=== PATIENT | male | born 1990 | race Two or more races ===

== ENCOUNTER 2017-06-15 22:42 | Emergency (ER) | payer OTHER ==
[~2017-06-15] VITALS: Ht 175.3 cm; Wt 59.6 kg
[2017-06-15] MEDS ORDERED: ALBUTEROL (23:25)
[2017-06-15] MEDS ORDERED: FAMOTIDINE 20 MG/2 ML IVP ONE (23:30)
[2017-06-15] MEDS ORDERED: SODIUM CHLORIDE 0.9% 1,000ML IVBOLUS ONE (23:30)
[2017-06-15] MEDS ORDERED: MAALOX/HYOSCYAMINE/LIDOCAINE 45 ML BOTTLE PO ONE (23:30)
[2017-06-15] MEDS ORDERED: SODIUM CHLORIDE FLUSH 10ML SYR IVF ONE (23:30)
[2017-06-15] MEDS ORDERED: ONDANSETRON 2MG/ML, 2ML IVPush ONE (23:30)
[2017-06-15 23:53] LABS: ASPARTATE AMINO TRANSFERASE 291 U/L (15-37); BLOOD UREA NITROGEN 6 mg/dL (7-18)
[2017-06-15] MEDS ORDERED: MAALOX/HYOSCYAMINE/LIDOCAINE 45 ML BOTTLE ONE (23:53)
[2017-06-15] MEDS ORDERED: FAMOTIDINE 20 MG/2 ML ONE (23:54)
[2017-06-15] MEDS ORDERED: ONDANSETRON 2MG/ML, 2ML ONE (23:54)
[2017-06-16 01:04] VITALS: BP 111/76
== END 2017-06-16 02:31 | disposition home or self-care (01) ==
LOC: ED 23:35
DX: K29.20 Alcoholic gastritis without bleeding (principal); D69.6 Thrombocytopenia, unspecified; K70.10 Alcoholic hepatitis without ascites
CPT/HCPCS: 36415; 74020; 76700; 80053; 83690; 85025; 96361; 96374; 96375; 99285; J2405; J7030; S0028

== ENCOUNTER 2017-08-04 14:38 | Emergency (ER) | payer OTHER ==
[~2017-08-04] VITALS: Ht 175.3 cm; Wt 61.2 kg
[~2017-08-04 14:38] MED LIST: ALBUTEROL
[2017-08-04 14:41] VITALS: BP 131/82
== END 2017-08-04 15:46 ==
LOC: ED 15:30
DX: S83.92XA Sprain of unspecified site of left knee, initial encounter (principal); X58.XXXA Exposure to other specified factors, initial encounter; Y93.89 Activity, other specified; Y92.89 Other specified places as the place of occurrence of the external cause; Y99.8 Other external cause status
CPT/HCPCS: 99284

== ENCOUNTER 2018-01-25 22:12 | Emergency (ER) | payer OTHER ==
[~2018-01-25] VITALS: Ht 175.3 cm; Wt 65.0 kg
[2018-01-25] MEDS ORDERED: ONDANSETRON 2MG/ML, 2ML IVPush ONE (23:00)
[2018-01-25] MEDS ORDERED: SODIUM CHLORIDE FLUSH 10ML SYR IVF ONE (23:00)
[2018-01-25] MEDS ORDERED: SODIUM CHLORIDE 0.9% 1,000ML IVBOLUS ONE (23:00)
[2018-01-25 23:28] LABS: ALANINE AMINOTRANSFERASE 195 U/L (12-78); ANION GAP 7 mmol/L (5-15); CALCIUM 9.9 mg/dL (8.5-10.1); CHLORIDE 106 mmol/L (98-107); CREATININE 0.84 mg/dL (0.7-1.3)
[2018-01-25 23:29] LABS: MEAN CORPUSCULAR HEMOGLOBIN 33.6 pg (27.5-34.5); MEAN CORPUSCULAR HGB CONC 34.2 g/dL (33.2-36.2); MEAN CORPUSCULAR VOLUME 98.4 fL (81-97); RED BLOOD COUNT 4.87 x10^6/uL (4.38-5.82); RED CELL DISTRIBUTION WIDTH 12.9 % (9.4-14.8)
[2018-01-25 23:30] LABS: ALKALINE PHOSPHATASE 86 U/L (45-117); BILIRUBIN,TOTAL 0.4 mg/dL (0.2-1.0); TOTAL PROTEIN 8.4 g/dL (6.4-8.2)
[2018-01-25 23:36] LABS: MEAN PLATELET VOLUME 7.9 fL (7.4-10.4); PLATELET COUNT 97 x10^3/uL (130-400)
[2018-01-25 23:37] LABS: MD YES
[2018-01-25 23:40] LABS: <PLATELET ESTIMATE> DECREASED; <RBC MORPHOLOGY> NORMAL; BASOS#(MANUAL) 0.04 x10^3/uL (0-0.1); BASOS% (MANUAL) 1 % (0-1); EOS#(MANUAL) 0.12 x10^3/uL (0.0-0.4); EOS% (MANUAL) 3 % (1-7); LYMPH#(MANUAL) 1.25 x10^3/uL (1-3.4); LYMPHS% (MANUAL) 32 % (22-44); MONOS#(MANUAL) 0.23 x10^3/uL (0.3-2.7); MONOS% (MANUAL) 6 % (2-9); SEG#(MANUAL) 2.26 x10^3/uL (1.8-6.8); SEGS% (MANUAL) 58 % (42-75)
[2018-01-25 23:41] LABS: <PLT MORPHOLOGY> NORMAL PLT MORPH
[2018-01-26] MEDS ORDERED: ONDANSETRON 2MG/ML, 2ML ONE (00:07)
[2018-01-26] MEDS ORDERED: OMNIPAQUE 350 MG/ML, 100ML BOTTLE ONE (00:34)
[2018-01-26 01:05] VITALS: BP 110/42
== END 2018-01-26 02:49 | disposition home or self-care (01) ==
LOC: ED 01-26 00:09
DX: F10.229 Alcohol dependence with intoxication, unspecified (principal); R19.7 Diarrhea, unspecified
CPT/HCPCS: 36415; 74177; 80053; 83690; 85025; 86308; 96361; 96374; 99285; J2405; J7030; Q9967